=== PATIENT | male | born 1945 ===

== ENCOUNTER 2022-02-02 10:19 | Outpatient (CLI) | payer MEDICARE, BC ==
[2022-02-02] MEDS ORDERED: Iopamidol 300 61% 100 ML VIAL FS ONE (15:38)
== END 2022-02-02 10:20 | disposition home or self-care (01) ==
LOC: CSHCT 10:19
PROVIDERS: ATTEND Otolaryngology Plastic Surgery within the Head & Neck
DX: K11.8 Other diseases of salivary glands (principal); I65.23 Occlusion and stenosis of bilateral carotid arteries
CPT/HCPCS: 70491; 82565; Q9967